=== PATIENT | male | born 1930 | race Caucasian/White ===

== ENCOUNTER 2018-10-16 21:30 | Emergency (ER) | payer BC ==
[2018-10-16] MEDS ORDERED: TRAMADOL HCL 50 MG TABLET PO ONE (21:40)
--- NOTE | 2018-10-16 21:45 | Emergency Department Record ---
History of Present Illness - General Chief complaint: Extremity Problem Stated complaint: RT BICEP PAIN Time Seen by Provider: 10/16/18 21:40 Source: Patient Mode of Arrival: Ambulatory Limitations: No limitations - History of Present Illness Initial comments: 87 yo male presents to ED for evaluation of right shoulder pain with elevated of the upper extremity for the past 1 week. Patient denies specific injury, denies chest pain, shortness of breath, or neck pain symptoms. Patient's pain symptoms are reproduced with elevation of the upper extremity. MD Complaint: Joint pain Onset/Timin -: Week(s) Location: Right, Shoulder History of Same: No -: Yes Arthralgia Quality: Aching Consistency: Intermittent Worsens with: Other (Elevation of the arm laterally) Associated Symptoms: Denies other symptoms - Related Data Home Medications Medication Instructions Recorded Confirmed Last Taken Levothyroxine Sodium 1 tab PO DAILY 10/16/18 10/16/18 10/16/18 Loratadine [Claritin] 10 mg PO DAILY 10/16/18 10/16/18 10/16/18 [place]-3 Fatty Acids/Fish Oil [Fish 1 each PO DAILY 10/16/18 10/16/18 10/16/18 Oil 1,000 mg Capsule] Omeprazole [Prilosec] 1 tab PO DAILY 10/16/18 10/16/18 10/16/18 Previous Rx's Medication Instructions Recorded Tramadol HCl 50 mg PO Q8H PRN #15 tab 10/16/18 Allergies Allergy/AdvReac Type Severity Reaction Status Date / Time No Known Drug Allergies Allergy Verified 10/16/18 21:43 Review of Systems Constitutional: Denies: Chills, Fever, Malaise, Night sweats Eyes: Denies: Eye discharge, Eye pain ENT: Denies: Congestion, Ear pain, Epistaxis Respiratory: Denies: Cough, Dyspnea Cardiovascular: Denies: Chest pain, Dyspnea on exertion Endocrine: Denies: Fatigue, Heat or cold intolerance Gastrointestinal: Denies: Abdominal pain, Nausea, Vomiting Genitourinary: Denies: Incontinence, Retention Musculoskeletal: Reports: Arthralgia. Denies: Back pain Skin: Denies: Bruising, Change in color Neurological: Denies: Abnormal gait, Confusion, Headache, Seizure Psychiatric: Denies: Anxiety Hematological/Lymphatic: Denies: Anemia, Blood Clots Physical Exam - General General Appearance: Alert, Oriented x3, Cooperative, Mild distress Limitations: No limitations - Head Head exam: Atraumatic, Normocephalic, Normal inspection Head exam detail: negative: Abrasion, Contusion, Fields's sign, General tenderness, Hematoma, Laceration - Eye Eye exam: Normal appearance. negative: Conjunctival injection, Periorbital s welling, Periorbital tenderness, Scleral icterus - ENT Ear exam: negative: Auricular hematoma, Auricular trauma Nasal Exam: negative: Active bleeding, Discharge, Dried blood, Foreign body Mouth exam: negative: Drooling, Laceration, Muffled voice, Tongue elevation - Neck Neck exam: Normal inspection. negative: Meningismus, Tenderness - Respiratory Respiratory exam: Normal lung sounds bilaterally. negative: Rales, Respiratory distress, Rhonchi, Stridor - Cardiovascular Cardiovascular Exam: Regular rate, Normal rhythm, Normal heart sounds - GI/Abdominal GI/Abdominal exam: Soft. negative: Rebound, Rigid, Tenderness - Rectal Rectal exam: Deferred - exam: Deferred - Extremities Extremities exam: Other (Decreased ROM of the right shoulder, nontender to palpation). negative: Calf tenderness, Pedal edema, Tenderness - Back Back exam: Denies: CVA tenderness (R), CVA tenderness (L) - Neurological Neurological exam: Alert, Normal gait, Oriented X3 - Psychiatric Psychiatric exam: Normal affect, Normal mood - Skin Skin exam: Normal color. negative: Abrasion Type of lesion: negative: abrasion Course Vital Signs 10/16/18 21:35 Temperature 98 F Pulse Rate [ 78 Pulse Ox Probe] Respiratory 24 Rate Blood Pressure 193/84 [Left Arm] Pulse Ox 96 - Reevaluation(s) Reevaluation #1: 10/16/18 22:06 Right shoulder: Degenerative changes No acute process Patient was updated on all results, will prescribe Tramadol as needed for pain symptoms. Will also place consultation with Dr. Daniels later this week for possible rotator cuff injury. Disposition Disposition: Discharge Clinical Impression: Shoulder pain, right Qualifiers: Chronicity: acute Qualified Code(s): M25.511 - Pain in right shoulder Disposition: Home, Self-Care Condition: (2) Stable Instructions: Shoulder Pain (ED) Additional Instructions: Return to ED if your symptoms worsen or if you have any concerns. Tramadol as directed. Follow-up with Dr. Daniels in 3-5 days as directed. Prescriptions: Tramadol HCl 50 mg PO Q8H PRN #15 tab PRN Reason: Pain - Moderate (5-7) Forms: Patient Portal Access Time of Disposition: 22:09 Quality - Quality Measures Quality Measures: N/A - Blood Pressure Screening Does Patient Have Any of the Following: No Blood Pressure Classification: Pre-Hypertensive BP Reading Systolic Measurement: 193 Diastolic Measurement: 84 Screening for High Blood Pressure: < Pre-Hypertensive BP, F/U Documented > [G8950] Pre-Hypertensive Follow-up Interventions: Referral to alternative/primary care provider.
--- NOTE | 2018-10-18 12:33 | RADIOLOGY REPORT ---
EXAM: RIGHT SHOULDER, THREE VIEWS HISTORY: RIGHT ARM PAIN STARTED ABOUT ONE WEEK AGO AND HAS BEEN GETTING WORSE. NO REPORTED INJURY. TECHNIQUE: Three views of the right shoulder were obtained. Comparison: None. FINDINGS: Moderate joint space narrowing and hypertrophic spurring at the glenohumeral and acromioclavicular joints. There is a large subacromial spur. No acute bone or joint abnormality is identified. 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 JOB NUMBER: [id number] [facility]
== END 2018-10-16 22:23 | disposition home or self-care (01) ==
LOC: ER 21:30
DX: M25.511 Pain in right shoulder (principal)
CPT/HCPCS: 99283